=== PATIENT | female | born 1985 | race Caucasian/White ===

== ENCOUNTER 2016-07-09 11:08 | Day surgery (SDC) | payer BC ==
[~2016-07-09] VITALS: Ht 157.5 cm; Wt 61.5 kg
[~2016-07-09 11:08] MED LIST: LORA10TA3 PO; OMEP40CA6 PO; SUMA25TA3 PO
[2016-07-09 11:54] VITALS: Ht 157.5 cm; Wt 61.5 kg
[2016-07-09] MEDS ORDERED: NORCO PO (12:02)
[2016-07-09] MEDS ORDERED: TYLENOL PO (12:02)
[2016-07-09] MEDS ORDERED: IBUPROFEN PO (12:02)
[2016-07-09] MEDS ORDERED: OMEP40CA6 PO (12:04)
[2016-07-09 12:37] VITALS: BP 106/75; PULSE 91; RESP 18
[2016-07-09] MEDS ORDERED: FENTAnyl 50 MCG/ML VIAL ONE (13:31)
[2016-07-09] MEDS ORDERED: MIDAZOLAM 1 MG/ML 2 ML INJ ONE ×3 (13:31)
[2016-07-09 14:00] VITALS: BP 110/73; PULSE 72; RESP 18
--- NOTE | 2016-07-09 15:06 | GILP ---
DATE OF PROCEDURE: 07/09/2016 NAME OF PROCEDURES: 1. Esophagogastroduodenoscopy and biopsy. 2. Colonoscopy and biopsy. SURGEON: Jessica Reid MD PREOPERATIVE DIAGNOSES: 1. Abdominal pain. 2. Change in the bowel habit and chronic diarrhea. 3. Rectal bleeding. POSTOPERATIVE DIAGNOSES: 1. Gastritis. 2. Gastric mucosal biopsies were taken for Helicobacter pylori test. 3. Colonoscopy all the way to the cecum and into the terminal ileum. 4. Normal terminal ileum. 5. Random biopsies were taken to rule out microscopic colitis. 6. Small bowel biopsies were taken to rule out celiac disease. 7. Internal hemorrhoids. INDICATION FOR THE PROCEDURE: Ms. Dedra Ling is a 30-year-old female patient who had upper and l ower abdominal pain, not responding to therapy. She also had chronic diarrhea and history of rectal bleeding. The patient was scheduled for endoscopy and colonoscopy for further evaluation. The procedures and possible complications are well explained to the patient, she understood and cons ented to the procedure. DESCRIPTION OF PROCEDURE: Under the influence of fentanyl and Versed, the gastroscope was carefully introduced into the esophagus and under direct vision, it was advanced to the stomach and through t he pylorus into the duodenal bulb and descending duodenum. FINDINGS: ESOPHAGUS: The mucosa was normal. STOMACH: The patient had gastritis. Gastric mucosal biopsies were taken for H. pylori test. DUODENUM: Normal. Small bowel biopsies were taken to rule out celiac disease. The colonoscope was carefully introduced in the rectum and under direct vision, it was advanced all the way to the cecum and through the ileocecal valve into the terminal ileum. FINDINGS: The patient had normal terminal ileum. The colonic mucosa was normal. Random biopsies w ere taken to rule out microscopic colitis. The patient was noted to have internal hemorrhoids. She tolerated the procedures very well and there was no complication from the procedures. At the en d of the procedures, she was awake with stable vital signs and she was discharged home to the care o f her family. IMPRESSION: Please see postoperative diagnoses. PLAN: 1. Continue Nexium and Bentyl. 2. Anusol-HC 2.5% cream at bedtime p.r.n. 3. Await histopathology reports. Dictated By: JESSICA MONTANA/KEENA Conf#: [id number] DID#: [id number] CC: JESSICA REID MD;*End*
--- NOTE | 2016-07-10 08:10 | CONS ---
DATE OF ADMISSION: 07/09/2016 DATE OF CONSULTATION: TYPE OF CONSULTATION: Preoperative Gastroenterology HISTORY OF PRESENT ILLNESS: I thank you very much for this kind referral. Ms. Ling is a 30-year- old female patient who has been referred to me for further evaluation of abdominal pain, nausea, vom iting, and rectal bleeding. Patient states she has got pain both in the upper part of the abdomen, as well as the lower part. She has been taking Nexium 24 hours without complete relief of the sympt oms. The patient is known to have had gastritis and gastroesophageal reflux disease. She does not take any nonsteroidal, anti-inflammatory agents. There is no history of gallstones. She does not h ave any fever, chills, or jaundice. There is no history of liver disease. Patient went to the [facility] room because of the severe pain, and she underwent abdominal ultrasound as well as abdominal C T scan. The patient was noted to have renal stones. There was no other abnormality detected. Catie ent also complains of lower abdominal pain with change in the bowel habit with alternating constipat ion and diarrhea. She complains of rectal bleeding. She says at times it is profuse. She is not a hypertensive or diabetic. She does not have any heart disease or lung problem. There is no histor y of kidney disease. SOCIAL HISTORY: She is a nonsmoker. She does not abuse alcohol. FAMILY HISTORY: Particular for the history of stomach cancer in her grandmother. ALLERGIES: THERE IS NO HISTORY OF SIGNIFICANT DRUG ALLERGY. MEDICATIONS: Nexium 24 hours. PHYSICAL EXAMINATION VITAL SIGNS: She is 5 feet 2 inches tall, and she weighs 140 pounds. HEART: Examination of the heart reveals normal first and second heart sounds. LUNGS: Clear. ABDOMEN: Soft without any distention. Liver and spleen are not palpable. There are no masses. Th ere is no focal tenderness. Normal bowel sounds are heard. CENTRAL NERVOUS SYSTEM: Does not reveal any focal neurological deficit. IMPRESSION: 1. Upper abdominal pain associated with nausea and vomiting. 2. The patient has been taking Nexium without relief. 3. Lower abdominal pain. 4. Change in the bowel habit with alternating constipation and severe diarrhea. 5. Rectal bleeding. 6. She had abdominal ultrasound and CT scan done, and according to her, they were normal except for renal stones. 7. Patient's grandmother had stomach cancer. PLAN: 1. Continue Nexium 24 hours. 2. Bentyl 10 mg p.o. t.i.d. a.c. 3. Endoscopy and colonoscopy for further evaluation. The procedures and possible complications are well explained to the patient. She understands and co nsents to the procedures. I thank you once again. With warmest personal regards. With warmest personal regards, Dictated By: JESSICA MONTANA/KEENA Conf#: [id number] DID#: [id number]
== END 2016-07-09 15:24 | disposition home or self-care (01) ==
LOC: GIL 11:08
PROVIDERS: ATTEND Internal Medicine Gastroenterology
DX: R19.4 Change in bowel habit (principal); K29.70 Gastritis, unspecified, without bleeding; K64.8 Other hemorrhoids
CPT/HCPCS: 43239; 45380; 87081; 88305; J2250; J3010; Z7610